=== PATIENT | male | born 2005 | race Caucasian/White ===

== ENCOUNTER 2024-10-08 22:43 | Emergency (ER) | payer OTHER, SELFPAY ==
[2024-10-08 22:46] VITALS: BP 125/73
[2024-10-09] MEDS: ZOFRAN ODT (ORALLY DISINTEGRATING) 4 MG PO (00:36)
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
== END 2024-10-09 02:25 | disposition home or self-care (01) ==
LOC: EMR 22:43
PROVIDERS: EMERGENCY PHYSICIAN Emergency Medicine; FAMILY PHYSICIAN Internal Medicine
DX: S02.31XA Fracture of orbital floor, right side, initial encounter for closed fracture (principal); Y04.0XXA Assault by unarmed brawl or fight, initial encounter
CPT/HCPCS: 99284; 70450; 70480

== ENCOUNTER → 2025-02-28 11:14 | Outpatient (REF) | payer OTHER, SELFPAY | LOC: HWRAD 11:14 | PROVIDERS: ATTENDING PHYSICIAN Ophthalmology; FAMILY PHYSICIAN Nurse Practitioner Adult Health | DX: S02.31XD Fracture of orbital floor, right side, subsequent encounter for fracture with routine healing (principal) | CPT/HCPCS: 70480 ==